=== PATIENT | female | born 1995 | race Caucasian/White ===

== ENCOUNTER 2021-08-04 02:24 | Emergency (ER) | payer MEDICAID ==
[2021-08-04] MEDS ORDERED: Acetaminophen 500 MG Tab PO ONE (02:35)
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
[2021-08-04] MEDS ORDERED: HYDROmorphone 0.5 MG/0.5 ML Syringe IVPUSH ONE (04:00)
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
== END 2021-08-04 04:51 | disposition home or self-care (01) ==
LOC: DL.ED 02:24
DX: S00.33XA Contusion of nose, initial encounter (principal); Z88.5 Allergy status to narcotic agent; W50.0XXA Accidental hit or strike by another person, initial encounter
CPT/HCPCS: 70486; 96374; 99284; A9270; J1170